=== PATIENT | female | born 1975 | race Caucasian/White ===

== ENCOUNTER 2020-06-25 18:05 | Emergency (ER) | payer MEDICAID ==
[~2020-06-25] VITALS: Ht 165.1 cm; Wt 68.4 kg
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
--- NOTE | 2020-06-25 18:53 | NUR ---
report to Ernst HINES
--- NOTE | 2020-06-25 18:54 | NUR ---
received report from DONNY Riley
--- NOTE | 2020-06-25 19:08 | NUR ---
patient to X ray
--- NOTE | 2020-06-25 19:47 | NUR ---
X ray resulted. chart up for MD to re-eval.
[2020-06-25] MEDS ORDERED: LIDOCAINE-MPF 1%, 5ML ONE (20:04)
[2020-06-25] MEDS ORDERED: ONDANSETRON 2MG/ML, 2ML ONE (20:08)
[2020-06-25] MEDS ORDERED: HYDROmorphone 1 MG/ML, 1ML INJ ONE (20:08)
--- NOTE | 2020-06-25 20:13 | NUR ---
re-evaluation done. patient medicated for pain and nausea.
[2020-06-25] MEDS ORDERED: HYDROmorphone 1 MG/ML, 1ML INJ IV ONE (20:30)
[2020-06-25] MEDS ORDERED: ONDANSETRON 2MG/ML, 2ML IVPush ONE (20:30)
--- NOTE | 2020-06-25 20:52 | NUR ---
volar splint applied.
--- NOTE | 2020-06-25 21:32 | NUR ---
no numbness on patient's fingers. discharged with prescription and instruction. verbalized understanding.
[2020-06-25 21:33] VITALS: BP 128/65
== END 2020-06-25 21:36 | disposition home or self-care (01) ==
LOC: ED 18:35
DX: S52.531A Colles' fracture of right radius, initial encounter for closed fracture (principal); F17.210 Nicotine dependence, cigarettes, uncomplicated; Z88.5 Allergy status to narcotic agent; W18.30XA Fall on same level, unspecified, initial encounter; Y93.89 Activity, other specified; Y92.009 Unspecified place in unspecified non-institutional (private) residence as the place of occurrence of the external cause; Y99.8 Other external cause status
CPT/HCPCS: 25605; 73110; 96374; 96375; 99284; J1170; J2405

== ENCOUNTER 2020-07-04 08:20 | Day surgery (SDC) | payer MEDICAID ==
[~2020-07-04] VITALS: Ht 165.1 cm; Wt 63.5 kg
[~2020-07-04 08:20] MED LIST: OXYC1TAB14 PO; SERT100T PO; TRAZ50TA66 PO
[2020-07-04 09:05] VITALS: BP 124/85
[2020-07-04 09:27] LABS: HCG UR SG 1.016 (1.003-1.030)
[2020-07-04] MEDS ORDERED: CHLORHEXIDINE 15 ML UDC PO ONE (09:30)
[2020-07-04] MEDS ORDERED: FENTANYL PF 100 MCG/2ML ONE ×3 (09:46→12:41)
[2020-07-04] MEDS ORDERED: MIDAZOLAM 1 MG/ML, 2ML ONE (09:46)
[2020-07-04] MEDS ORDERED: LACTATED RINGERS 1,000 ML IV SCH (10:00)
[2020-07-04] MEDS ORDERED: BUPIVACAINE/PF 0.5% ONE (10:29)
[2020-07-04] MEDS ORDERED: EPINEPHRINE 1 MG/ML, 1ML ONE (10:30)
[2020-07-04] MEDS ORDERED: FENTANYL PF 250 MCG/5ML ONE (10:52)
[2020-07-04] MEDS ORDERED: LIDOCAINE-MPF 2% ,5ML ONE (10:55)
[2020-07-04] MEDS ORDERED: ONDANSETRON 2MG/ML, 2ML ONE ×2 (10:55→12:41)
[2020-07-04] MEDS ORDERED: CEFAZOLIN 1,000 MG ONE ×3 (10:55→12:41)
[2020-07-04] MEDS ORDERED: PROPOFOL 10 MG/ML, 20ML ONE ×2 (10:55→12:41)
[2020-07-04] MEDS ORDERED: HYDROmorphone 1 MG/ML, 1ML INJ ONE ×2 (11:25→11:41)
[2020-07-04] MEDS: FENTANYL PF 100 MCG/2ML IV PRN ×2 (11:25→11:30)
[2020-07-04] MEDS ORDERED: OXYcodone 5 MG/5 ML ORAL.SOL UDC ONE (11:25)
[2020-07-04] MEDS: HYDROmorphone 1 MG/ML, 1ML INJ IVPush PRN ×4 (11:35→11:50)
[2020-07-04] MEDS ORDERED: DIAZEPAM 5 MG/ML, 2ML ONE (11:40)
[2020-07-04] MEDS ORDERED: KETOROLAC 30 MG/1 ML ONE (11:54)
[2020-07-04] MEDS ORDERED: DIAZEPAM 5 MG/ML, 2ML IVPush PRN (12:00)
[2020-07-04] MEDS ORDERED: ACETAMINOPHEN 325 MG TABLET PO PRN (12:00)
[2020-07-04] MEDS ORDERED: ONDANSETRON 2MG/ML, 2ML IVPush PRN (12:00)
[2020-07-04] MEDS ORDERED: OXYcodone 5 MG/5 ML ORAL.SOL UDC PO PRN (12:00)
[2020-07-04] MEDS ORDERED: MEPERIDINE/PF 25MG/0.5ML IVPush PRN (12:00)
[2020-07-04] MEDS ORDERED: PROMETHAZINE 25 MG/ML, 1ML IVPush PRN (12:00)
[2020-07-04] MEDS ORDERED: MEPERIDINE/PF 25MG/ML,1ML ONE (12:04)
[2020-07-04] MEDS ORDERED: KETOROLAC 30 MG/1 ML IM PRN (12:30)
[2020-07-04] MEDS ORDERED: MIDAZOLAM 1 MG/ML, 5ML ONE (12:41)
[2020-07-04] MEDS ORDERED: KETOROLAC 30 MG/1 ML IV ONE (13:30)
== END 2020-07-04 14:00 | disposition home or self-care (01) ==
LOC: OUT 08:20 → EDSTATUS 09:00 → OUT 14:00
PROVIDERS: ATTEND Orthopaedic Surgery
DX: S52.552A Other extraarticular fracture of lower end of left radius, initial encounter for closed fracture (principal); F17.200 Nicotine dependence, unspecified, uncomplicated; Z20.822 Contact with and (suspected) exposure to COVID-19; Z79.891 Long term (current) use of opiate analgesic; Z79.899 Other long term (current) drug therapy; Z88.8 Allergy status to other drugs, medicaments and biological substances; Z82.3 Family history of stroke; W18.39XA Other fall on same level, initial encounter; Y93.89 Activity, other specified; Y92.89 Other specified places as the place of occurrence of the external cause; Y99.8 Other external cause status
CPT/HCPCS: 25607; 73100; 81025; C1713; J0171; J0690; J1170; J1885; J2175; J2250; J2405; J2704; J3010; J3360; J7120; U0003; U0005; 76000